=== PATIENT | male | born 1955 | race Caucasian/White ===

== ENCOUNTER 2022-01-26 15:31 | Emergency (ER) | payer BC ==
[2022-01-26] MEDS ORDERED: Oxymetazoline 0.05% Nasal Spray 15 ML Bottle NAS ONE (15:32)
[2022-01-26] MEDS ORDERED: Oxymetazoline 0.05% Nasal Spray 30 ML Bottle NAS ONE (16:04)
== END 2022-01-26 20:00 | disposition home or self-care (01) ==
LOC: MW.ED 15:31
DX: R04.0 Epistaxis (principal); F17.210 Nicotine dependence, cigarettes, uncomplicated; Z79.899 Other long term (current) drug therapy
CPT/HCPCS: 30903; 99282; A9270; 99283

== ENCOUNTER 2022-01-28 19:00 | Emergency (ER) | payer BC | END 2022-01-28 19:46 | disposition home or self-care (01) | LOC: MW.ED 19:00 | DX: Z48.00 Encounter for change or removal of nonsurgical wound dressing (principal); I10 Essential (primary) hypertension | CPT/HCPCS: 99281; 99282 ==

== ENCOUNTER 2024-11-18 06:26 | Day surgery (SDC) | payer BC ==
[~2024-11-18 06:26] MED LIST: Sodium Chloride 0.9% 10 ML Syringe FLUSH PRN; Sodium Chloride 0.9% 2.5 ML Syringe FLUSH PRN; Sodium Chloride 0.9% 20 ML SDV IV PRN
[2024-11-18] MEDS ORDERED: ceFAZolin 2 GM in Sodium Chloride 0.9% 50 ML IV ONE (07:00)
[2024-11-18] MEDS ORDERED: Lidocaine 1% 20 ML MDV ONE (07:12)
[2024-11-18] MEDS ORDERED: Bupivacaine 0.5% 10 ML SDV ONE (07:12)
[2024-11-18] MEDS: Lactated Ringers 1,000 ML IV SCH (07:22)
[2024-11-18] MEDS ORDERED: propofoL 500 MG/50 ML 50 ML ONE (07:29)
[2024-11-18] MEDS ORDERED: Morphine 2 MG/ML SYRINGE IVPUSH PRN (07:46)
[2024-11-18] MEDS ORDERED: fentaNYL 50 MCG/ML SDV IVPUSH PRN (07:46)
[2024-11-18] MEDS ORDERED: Metoclopramide 10 MG/2 ML SDV IVPUSH PRN (07:46)
[2024-11-18] MEDS ORDERED: HYDROmorphone 1 MG/ML Syringe IVPUSH PRN (07:46)
[2024-11-18] MEDS ORDERED: Ondansetron 4 MG/2 ML SDV IVPUSH PRN (07:46)
[2024-11-18] MEDS ORDERED: Albuterol 0.083% 2.5 MG/3 ML Neb Soln NEB PRN (07:46)
[2024-11-18] MEDS ORDERED: Phenylephrine HCl In 0.9% NaCl 1 MG/10 ML Syringe IVPUSH PRN (07:46)
[2024-11-18] MEDS ORDERED: Naloxone 0.4 MG/ML SDV IVPUSH PRN (07:46)
[2024-11-18] MEDS ORDERED: fentaNYL 100 MCG/2 ML SDV ONE (08:05)
[2024-11-18] MEDS ORDERED: Ketamine HCL/NACL, ISO-OSM 50 MG/5 ML Syringe ONE (08:05)
[2024-11-18] MEDS ORDERED: ceFAZolin 2 GM Vial ONE (08:12)
[2024-11-18] MEDS ORDERED: Propofol 200 MG/20 ML SDV ONE ×2 (08:39→08:55)
== END 2024-11-18 10:05 | disposition home or self-care (01) ==
LOC: MW.SDS 06:26
PROVIDERS: ATTEND Surgery
DX: Z12.11 Encounter for screening for malignant neoplasm of colon (principal); K62.1 Rectal polyp; K63.5 Polyp of colon; D12.0 Benign neoplasm of cecum; D12.3 Benign neoplasm of transverse colon; K57.30 Diverticulosis of large intestine without perforation or abscess without bleeding; L72.0 Epidermal cyst; I10 Essential (primary) hypertension; F17.210 Nicotine dependence, cigarettes, uncomplicated; Z79.899 Other long term (current) drug therapy; Z86.0100 Personal history of colon polyps, unspecified
CPT/HCPCS: 11403; 12032; 45380; J0665; J0690; J2704; J3010; J7120; 00811; J3490